=== PATIENT | male | born 1940 | race Caucasian/White ===

== ENCOUNTER 2022-01-08 08:17 | Day surgery (SDC) | payer MEDICARE ==
[~2022-01-08] VITALS: Ht 175.3 cm; Wt 84.1 kg
[~2022-01-08 08:17] MED LIST: AMLO5 PO; ASPI81CH PO; ATOR80 PO; Benicar Hct 201 EACH PO; CELE100 PO; CLOP75 PO; DIAZ2 PO; GLIP5 PO; ISORDIL PO; PANTOPRAZOLE SO40 M1 PO; TAMS.4ER PO; TRAZ50 PO
--- NOTE | 2022-01-08 09:25 | NUR ---
History, Chart, Medications and Allergies reviewed before start of procedure. Lungs clear T/O to Auscultation. Patient confirms NPO status and agrees with scheduled surgery. Pre-Op teaching done. Pt verbalizes understanding. Patient reports completing Chlorhexadine shower X2 prior to admission to hospital.
--- NOTE | 2022-01-08 19:13 | NUR ---
SHIFT SUMMARY POD0 R TKA, A/O X4, VSS, TOLERATING DIET, AMBULATED AFTER ARRIVAL TO THE UNIT AND SENSATION WAS INTACT AFTER SPINAL ANESTHESIA WORE OFF, PAIN WELL MANAGED PER EMAR, NO ACUTE EVENTS THIS SHIFT. PT UP TO CHAIR T/O MOST OF THE SHIFT, RLE ELEVATED WHILE IN CHAIR. CALL LIGHT IN REACH, REPORT GIVEN TO ERICH DAVIS.
--- NOTE | 2022-01-08 19:22 | NUR ---
POLAR PACK IN PLACE AT ALL TIMES OTHER THAN WHILE AMBULATING.
[2022-01-09 03:58] LABS: BASOPHILS ABSOLUTE AUTO 0.08 K/mm3 (0.00-0.23); BASOPHILS PERCENT AUTO 1 % (0-2); EOSINOPHILS ABSOLUTE AUTO 0.91 K/mm3 (0.00-0.68); EOSINOPHILS PERCENT AUTO 8 % (0-6); Hematocrit 34.1 % (37.0-53.0); Hemoglobin 10.7 g/dL (13.5-17.5); IMMATURE GRAN ABSOLUTE AUTO 0.05 K/mm3 (0.00-0.10); IMMATURE GRAN PERCENT AUTO 1 % (0-1); LYMPHOCYTES ABSOLUTE AUTO 1.15 K/mm3 (0.84-5.20); LYMPHOCYTES PERCENT AUTO 10 % (21-46); MONOCYTES ABSOLUTE AUTO 0.99 K/mm3 (0.16-1.47); MONOCYTES PERCENT AUTO 9 % (4-13); Mean Corpuscular HGB 28.5 pg (26.0-34.0); Mean Corpuscular HGB Conc 31.4 g/dL (31.5-36.5); Mean Corpuscular Volume 91 fL (80-100); Mean Platelet Volume 10.7 fL (9.1-12.4); NEUTROPHILS ABSOLUTE AUTO 7.84 K/mm3 (1.96-9.15); NEUTROPHILS PERCENT AUTO 71 % (41-73); Platelet Count 165 K/mm3 (150-400); RDW Coefficient Variation 14.1 % (11.7-14.2); RDW Standard Deviation 47.4 fL (35.1-46.3); Red Blood Cell Count 3.76 M/mm3 (4.30-5.90); White Blood Cell Count 11.02 K/mm3 (4.00-11.30)
[2022-01-09 04:11] LABS: Bun/Creatinine Ratio 18.3 (12.0-20.0); Calcium, Blood 8.4 mg/dL (8.5-10.1); Creatinine, Blood 2.4 mg/dL (0.60-1.20)
--- NOTE | 2022-01-09 05:07 | NUR ---
SUMMARY PT HAD NO NEW ISSUES NOTED. PT PAIN MANAGED WELL. PT DRESSING REMAINS C/D/I. POLAR WRAP REMAINED ON PT. PT AMBULATORY TO BATHROOM W/ GB AND FWW.PT SLEPT WELL WITH CPAP ON T/OUT SHIFT. PT CURRENTLY SLEEPING IN NO DISTRESS. CALL LIGHT IN REACH.
[2022-01-09] MEDS ORDERED: Percocet 5-3251 EACH PO (09:54)
--- NOTE | 2022-01-09 10:45 | NUR ---
DISCHARGE INSTUCTIONS GIVEN TO PATIENT AND AT THIS TIME. THEY VERBALIZED UNDERSTANDING. PAIN MEDS GIVEN PRIOR TO DISCHARGE. PRESCRIPTION GIVEN FOR PAIN MED. NO SIGNS OR SYMPTOMS ACUTE DISTRESS NOTED. TAKING HIM HOME VIA CAR. DRESSINGS SENT WITH PATIENT. CURRENT DRESSING IS CDI ON RIGHT KNEE.
== END 2022-01-09 10:52 | disposition home or self-care (01) ==
LOC: ORSCMMR 08:17 → SURS 13:08 → ORSCMMR 01-09 10:52
PROVIDERS: Orthopaedic Surgery
PROC: 0SRC0JA Replacement of Right Knee Joint with Synthetic Substitute, Uncemented, Open Approach (ICD-10-PCS; principal; 2022-01-08 09:45)
DX: M17.11 Unilateral primary osteoarthritis, right knee (principal); I10 Essential (primary) hypertension; E11.9 Type 2 diabetes mellitus without complications; E78.5 Hyperlipidemia, unspecified; N18.4 Chronic kidney disease, stage 4 (severe); Z79.899 Other long term (current) drug therapy
CPT/HCPCS: 36415; 73560-RT; 80048; 82947; 85025; 97110; 97112; 97116; 97161; 97530; A9270; C1776; J0171; J0690; J0735; J1885; J2250; J2370; J2704; J2795; J7120

== ENCOUNTER → 2022-03-01 | Outpatient (CLI) | payer MEDICARE ==
[~2022-03-01] MED LIST changes: +Percocet 5-3251 EACH PO
[2022-03-01 11:41] LABS: Creatinine Urine 74.9 mg/dL (27.00-270.00); Protein, Urine Quantitative 29.3 mg/dL (0.0-11.9)
== END | disposition home or self-care (01) ==
LOC: LAB SHORT 09:37 → LAB FUT 02-27 15:20
PROVIDERS: Internal Medicine Nephrology
DX: N18.30 Chronic kidney disease, stage 3 unspecified (principal); D63.1 Anemia in chronic kidney disease; G60.9 Hereditary and idiopathic neuropathy, unspecified; N25.81 Secondary hyperparathyroidism of renal origin; E78.00 Pure hypercholesterolemia, unspecified; E55.9 Vitamin D deficiency, unspecified; D51.8 Other vitamin B12 deficiency anemias; D52.8 Other folate deficiency anemias; R76.9 Abnormal immunological finding in serum, unspecified; R94.5 Abnormal results of liver function studies; R94.6 Abnormal results of thyroid function studies
CPT/HCPCS: 81050; 82043; 82570; 84156